=== PATIENT | female | born 1965 ===

== ENCOUNTER 2021-03-15 17:46 | Inpatient (IN) | payer BC ==
[~2021-03-15] VITALS: Ht 152.4 cm; Wt 71.0 kg
[2021-03-15] MEDS ORDERED: ACETAMINOPHEN 325 MG TAB PO ONE (18:30)
[2021-03-15 18:41] LABS: Urine Amorphous Crystal FEW /hpf (None Seen); Urine Bacteria NONE SEEN /hpf (None Seen); Urine Blood Negative /uL (Negative); Urine Specific Gravity 1.027 (1.001-1.035); Urine WBC 47 /hpf (0 - 5); Urine WBC Clumps PRESENT /hpf (None Seen)
[2021-03-15] MEDS ORDERED: cefTRIAXone 1GM/50ML D5W 50 ML IV ONE (19:30)
[2021-03-15 19:47] LABS: Albumin 3.7 g/dL (3.4-5.0); Anion Gap 7 (5-15); Blood Urea Nitrogen 18 mg/dL (7-18); Calcium 9.5 mg/dL (8.5-10.1); Carbon Dioxide 25 mmol/L (21-32); Chloride 109 mmol/L (98-107); Glucose 103 mg/dL (74-106); Potassium 4.1 mmol/L (3.5-5.1); Sodium 141 mmol/L (136-145)
[2021-03-15 19:56] LABS: Alanine Aminotransferase 523 U/L (13-56); Alkaline Phosphatase 218 U/L (45-117); Aspartate Aminotransferase 833 U/L (15-37); BUN/Creatinine Ratio 17.5; Bilirubin, Total 0.5 mg/dL (0.2-1.0); GFR African American 71 mL/min; GFR Non-African American 59 mL/min; Total Protein 7.8 g/dL (6.4-8.2)
[2021-03-15] MEDS ORDERED: metroNIDAZOLE 500MG/100ML 100 ML IV ONE (20:00)
[2021-03-15 20:22] LABS: Basophils # (auto) 0.1 10 ^3/uL (0-0.2); Basophils % (auto) 0.5 % (0.0-2.0); Eosinophils # (auto) 0.3 10 ^3/uL (0-0.8); Eosinophils % (auto) 2.2 % (0.0-7.0); Lymphocytes % (auto) 29.4 % (10.0-50.0); Mean Corpuscular Hemoglobin 29.9 pg (28.0-32.0); Mean Corpuscular Hgb Conc. 31.9 g/dL (32.0-36.0); Mean Corpuscular Volume 93.5 fL (80.0-100.0); Monocytes # (auto) 1.1 10 ^3/uL (0-1.3); Monocytes % (auto) 8.1 % (0.0-12.0); Neutrophils # (auto) 8.1 10 ^3/uL (1.6-8.6); Neutrophils % (auto) 59.8 % (37.0-80.0); Nucleated Red Blood Cells % 0.1 %; Red Blood Cells 5.02 10^6/uL (4.0-5.20); Red Cell Distribution Width 13.7 % (11.8-14.3); White Blood Cell 13.6 10^3/uL (4.4-10.8)
[2021-03-15] MEDS ORDERED: IOHEXOL 300 MG/ML 100ML BOTTLE IJ ONE (20:25)
[2021-03-15 21:21] LABS: Lipase 68455 U/L (73-393)
[2021-03-16] MEDS ORDERED: NITROGLYCERIN 0.4 MG SL TAB SL PRN (00:15)
[2021-03-16] MEDS ORDERED: HYDROcodone-ACET 5/325MG TAB PO PRN (00:15)
[2021-03-16] MEDS ORDERED: ACETAMINOPHEN 325 MG TAB PO PRN (00:15)
[2021-03-16] MEDS ORDERED: MORPHINE SULFATE INJECTION 2 MG/ML SYRG IV PRN (00:15)
[2021-03-16 00:45] LABS: Basophils # (auto) 0 10 ^3/uL (0-0.2); Basophils % (auto) 0.4 % (0.0-2.0); Eosinophils # (auto) 0.4 10 ^3/uL (0-0.8); Eosinophils % (auto) 4.4 % (0.0-7.0); Hematocrit 44.1 % (36.0-46.0); Hemoglobin 14.6 g/dL (12.2-16.2); Lymphocytes # (auto) 3.1 10 ^3/uL (0.4-5.4); Lymphocytes % (auto) 32.4 % (10.0-50.0); Mean Corpuscular Hemoglobin 30.4 pg (28.0-32.0); Mean Corpuscular Hgb Conc. 33.1 g/dL (32.0-36.0); Mean Corpuscular Volume 91.9 fL (80.0-100.0); Monocytes # (auto) 0.6 10 ^3/uL (0-1.3); Neutrophils # (auto) 5.5 10 ^3/uL (1.6-8.6); Neutrophils % (auto) 56.8 % (37.0-80.0); Nucleated Red Blood Cells % 0.1 %; Red Blood Cells 4.79 10^6/uL (4.0-5.20); Red Cell Distribution Width 13.4 % (11.8-14.3); White Blood Cell 9.6 10^3/uL (4.4-10.8)
[2021-03-16 01:01] LABS: Albumin 3.2 g/dL (3.4-5.0); Calcium 8.7 mg/dL (8.5-10.1)
[2021-03-16 01:03] LABS: Bilirubin, Total 0.2 mg/dL (0.2-1.0); Total Protein 7.1 g/dL (6.4-8.2)
[2021-03-16] MEDS: SOD CHL 0.45% 1,000 ML IV SCH ×2 (01:14→13:35)
[2021-03-16] MEDS: metroNIDAZOLE 500MG/100ML 100 ML IV SCH ×3 (06:00→21:35)
[2021-03-16] MEDS: cefTRIAXone 1GM/50ML D5W 50 ML IV SCH (09:19)
[2021-03-16] MEDS: FAMOTIDINE (10MG/ML) 2ML VL IV SCH ×2 (10:29→21:35)
[2021-03-16 11:11] VITALS: BP 132/68
[2021-03-16 12:00] VITALS: BP 132/68
[2021-03-16 17:00] VITALS: BP 114/75
[2021-03-16] MEDS: MORPHINE SULFATE 4 MG/ML SYR/VIAL IV PRN (20:47)
[2021-03-16 22:00] VITALS: BP 128/85
[2021-03-17] MEDS: SOD CHL 0.45% 1,000 ML IV SCH ×2 (02:45→16:15)
[2021-03-17 05:00] VITALS: BP 108/70
[2021-03-17] MEDS: metroNIDAZOLE 500MG/100ML 100 ML IV SCH ×3 (06:47→22:06)
[2021-03-17 07:58] LABS: Basophils # (auto) 0 10 ^3/uL (0-0.2); Basophils % (auto) 0.5 % (0.0-2.0); Eosinophils # (auto) 0.4 10 ^3/uL (0-0.8); Eosinophils % (auto) 5.1 % (0.0-7.0); Hematocrit 44.9 % (36.0-46.0); Hemoglobin 14.5 g/dL (12.2-16.2); Lymphocytes # (auto) 3.1 10 ^3/uL (0.4-5.4); Lymphocytes % (auto) 35.1 % (10.0-50.0); Mean Corpuscular Hemoglobin 30.3 pg (28.0-32.0); Mean Corpuscular Hgb Conc. 32.3 g/dL (32.0-36.0); Mean Corpuscular Volume 93.8 fL (80.0-100.0); Monocytes # (auto) 0.5 10 ^3/uL (0-1.3); Monocytes % (auto) 5.5 % (0.0-12.0); Neutrophils # (auto) 4.7 10 ^3/uL (1.6-8.6); Neutrophils % (auto) 53.8 % (37.0-80.0); Red Blood Cells 4.78 10^6/uL (4.0-5.20); Red Cell Distribution Width 13.4 % (11.8-14.3); White Blood Cell 8.7 10^3/uL (4.4-10.8)
[2021-03-17 08:19] LABS: Calcium 8.7 mg/dL (8.5-10.1); Potassium 3.8 mmol/L (3.5-5.1)
[2021-03-17 08:22] LABS: BUN/Creatinine Ratio 18.2; Bilirubin, Total 0.5 mg/dL (0.2-1.0); Total Protein 6.8 g/dL (6.4-8.2)
[2021-03-17 09:00] VITALS: BP 113/71
[2021-03-17] MEDS: ONDANSETRON HCL 4 MG/2 ML VIAL IV PRN (09:14)
[2021-03-17] MEDS: cefTRIAXone 1GM/50ML D5W 50 ML IV SCH (09:14)
[2021-03-17] MEDS: FAMOTIDINE (10MG/ML) 2ML VL IV SCH ×2 (09:20→22:06)
[2021-03-17 12:30] VITALS: BP 109/72
[2021-03-17 17:00] VITALS: BP 124/75
[2021-03-17 22:00] VITALS: BP 111/55
[2021-03-18 05:20] VITALS: BP 108/63
[2021-03-18] MEDS: SOD CHL 0.45% 1,000 ML IV SCH ×2 (05:35→09:54)
[2021-03-18] MEDS: metroNIDAZOLE 500MG/100ML 100 ML IV SCH ×3 (06:14→21:42)
[2021-03-18] MEDS: cefTRIAXone 1GM/50ML D5W 50 ML IV SCH (09:00)
[2021-03-18 09:13] VITALS: BP 120/63
[2021-03-18] MEDS: FAMOTIDINE (10MG/ML) 2ML VL IV SCH ×2 (09:54→21:42)
[2021-03-18 13:00] VITALS: BP 127/68
[2021-03-18 17:29] VITALS: BP 112/77
[2021-03-18 22:00] VITALS: BP 129/66
[2021-03-19] MEDS: SOD CHL 0.45% 1,000 ML IV SCH ×2 (00:04→21:35)
[2021-03-19 05:00] VITALS: BP 110/70
[2021-03-19] MEDS: metroNIDAZOLE 500MG/100ML 100 ML IV SCH ×3 (05:41→21:44)
[2021-03-19 06:06] LABS: Basophils # (auto) 0 10 ^3/uL (0-0.2); Basophils % (auto) 0.6 % (0.0-2.0); Eosinophils # (auto) 0.3 10 ^3/uL (0-0.8); Eosinophils % (auto) 4.6 % (0.0-7.0); Hematocrit 41.3 % (36.0-46.0); Hemoglobin 13.7 g/dL (12.2-16.2); Lymphocytes # (auto) 3.4 10 ^3/uL (0.4-5.4); Lymphocytes % (auto) 46.1 % (10.0-50.0); Mean Corpuscular Hemoglobin 30.3 pg (28.0-32.0); Mean Corpuscular Hgb Conc. 33.3 g/dL (32.0-36.0); Mean Corpuscular Volume 91.1 fL (80.0-100.0); Monocytes # (auto) 0.5 10 ^3/uL (0-1.3); Monocytes % (auto) 6.4 % (0.0-12.0); Neutrophils # (auto) 3.1 10 ^3/uL (1.6-8.6); Neutrophils % (auto) 42.3 % (37.0-80.0); Red Blood Cells 4.53 10^6/uL (4.0-5.20); Red Cell Distribution Width 12.8 % (11.8-14.3); White Blood Cell 7.4 10^3/uL (4.4-10.8)
[2021-03-19 06:23] LABS: Potassium 3.5 mmol/L (3.5-5.1)
[2021-03-19 06:24] LABS: INR 1.1 (0.9-1.15); Partial Thromboplastin Time 29.6 sec (23.6-33.0)
[2021-03-19 06:33] LABS: Albumin 2.9 g/dL (3.4-5.0); BUN/Creatinine Ratio 12.7; Bilirubin, Total 0.4 mg/dL (0.2-1.0); Calcium 8.6 mg/dL (8.5-10.1); Total Protein 6.5 g/dL (6.4-8.2)
[2021-03-19 09:00] VITALS: BP 132/74
[2021-03-19] MEDS: cefTRIAXone 1GM/50ML D5W 50 ML IV SCH (09:00)
[2021-03-19] MEDS: FAMOTIDINE (10MG/ML) 2ML VL IV SCH ×2 (09:44→21:44)
[2021-03-19 12:58] VITALS: BP 128/64
[2021-03-19 16:59] VITALS: BP 117/74
[2021-03-19 22:00] VITALS: BP 106/68
[2021-03-20 05:00] VITALS: BP 101/64
[2021-03-20 05:31] LABS: Basophils # (auto) 0.1 10 ^3/uL (0-0.2); Basophils % (auto) 0.6 % (0.0-2.0); Eosinophils # (auto) 0.4 10 ^3/uL (0-0.8); Eosinophils % (auto) 4.8 % (0.0-7.0); Hematocrit 42.1 % (36.0-46.0); Hemoglobin 14.4 g/dL (12.2-16.2); Lymphocytes # (auto) 3.6 10 ^3/uL (0.4-5.4); Lymphocytes % (auto) 44.3 % (10.0-50.0); Mean Corpuscular Hgb Conc. 34.3 g/dL (32.0-36.0); Mean Corpuscular Volume 90.5 fL (80.0-100.0); Monocytes # (auto) 0.6 10 ^3/uL (0-1.3); Monocytes % (auto) 6.8 % (0.0-12.0); Neutrophils # (auto) 3.6 10 ^3/uL (1.6-8.6); Neutrophils % (auto) 43.5 % (37.0-80.0); Nucleated Red Blood Cells % 0.1 %; Red Blood Cells 4.65 10^6/uL (4.0-5.20); Red Cell Distribution Width 12.9 % (11.8-14.3); White Blood Cell 8.2 10^3/uL (4.4-10.8)
[2021-03-20] MEDS: metroNIDAZOLE 500MG/100ML 100 ML IV SCH ×3 (05:47→23:02)
[2021-03-20 06:22] LABS: Calcium 9.5 mg/dL (8.5-10.1); Potassium 3.8 mmol/L (3.5-5.1)
[2021-03-20 06:26] LABS: Albumin 3.1 g/dL (3.4-5.0); BUN/Creatinine Ratio 12.7
[2021-03-20 06:31] LABS: Bilirubin, Total 0.4 mg/dL (0.2-1.0); Total Protein 6.8 g/dL (6.4-8.2)
[2021-03-20 09:00] VITALS: BP 126/70
[2021-03-20] MEDS: cefTRIAXone 1GM/50ML D5W 50 ML IV SCH (09:00)
[2021-03-20] MEDS ORDERED: fentaNYL CITRATE 100 MCG/2 ML VL ONE (09:11)
[2021-03-20] MEDS ORDERED: SODIUM CHLORIDE LOCK 10 ML ONE (09:11)
[2021-03-20] MEDS ORDERED: HYDROmorphone HCL 2 MG/ML VL ONE (09:11)
[2021-03-20] MEDS ORDERED: MIDAZOLAM HCL 2MG/2ML 2ml VIAL (1mg/ml) ONE (09:11)
[2021-03-20] MEDS ORDERED: PROPOFOL 10 MG/ML 20 ML IV ONE (09:11)
[2021-03-20] MEDS ORDERED: ONDANSETRON HCL 4 MG/2 ML VIAL ONE (09:11)
[2021-03-20] MEDS ORDERED: ROCURONIUM 10MG/ML 10ML VIAL IV ONE (09:11)
[2021-03-20] MEDS ORDERED: NEOSTIGMINE 1 MG/ML INJ (10mg/10ML VIAL) ONE (09:11)
[2021-03-20] MEDS ORDERED: GLYCOPYRROLATE 0.2 MG/ML 1ML VIAL ONE (09:11)
[2021-03-20] MEDS ORDERED: ceFAZolin 1GM/50ML 100 ML IV ONE (09:14)
[2021-03-20] MEDS ORDERED: METOCLOPRAMIDE HCL 5MG/ml INJ 2ml VIAL IV PRN (09:30)
[2021-03-20] MEDS ORDERED: MORPHINE SULFATE 4 MG/ML SYR/VIAL IV PRN (09:30)
[2021-03-20] MEDS ORDERED: BUPIVACAINE W/ EPINEPH 0.25% INJ 50ML MDV ONE (09:35)
[2021-03-20] MEDS: FAMOTIDINE (10MG/ML) 2ML VL IV SCH ×2 (10:00→23:02)
[2021-03-20] MEDS: SOD CHL 0.45% 1,000 ML IV SCH (10:55)
[2021-03-20] MEDS ORDERED: SUGAMMADEX 200mg/2ml Vial (100MG/ML) IV ONE (11:13)
[2021-03-20] MEDS: HYDROmorphone HCL 2 MG/ML VL IV PRN ×3 (11:40→12:03)
[2021-03-20 13:00] VITALS: BP 103/59
[2021-03-20] MEDS: MORPHINE SULFATE 4 MG/ML SYR/VIAL IV PRN ×2 (13:51→18:13)
[2021-03-20 17:00] VITALS: BP 106/62
[2021-03-20] MEDS: ONDANSETRON HCL 4 MG/2 ML VIAL IV PRN (18:13)
[2021-03-20 22:00] VITALS: BP 113/63
[2021-03-21] MEDS: SOD CHL 0.45% 1,000 ML IV SCH ×2 (01:14→13:35)
[2021-03-21 05:00] VITALS: BP 111/70
[2021-03-21] MEDS: metroNIDAZOLE 500MG/100ML 100 ML IV SCH ×2 (05:57→14:00)
[2021-03-21 06:18] LABS: Basophils # (auto) 0.1 10 ^3/uL (0-0.2); Basophils % (auto) 0.7 % (0.0-2.0); Eosinophils # (auto) 0.1 10 ^3/uL (0-0.8); Eosinophils % (auto) 0.8 % (0.0-7.0); Hematocrit 40.9 % (36.0-46.0); Hemoglobin 14.2 g/dL (12.2-16.2); Lymphocytes # (auto) 2.5 10 ^3/uL (0.4-5.4); Lymphocytes % (auto) 25.8 % (10.0-50.0); Mean Corpuscular Hemoglobin 31.6 pg (28.0-32.0); Mean Corpuscular Hgb Conc. 34.8 g/dL (32.0-36.0); Mean Corpuscular Volume 90.9 fL (80.0-100.0); Monocytes # (auto) 0.7 10 ^3/uL (0-1.3); Monocytes % (auto) 7.4 % (0.0-12.0); Neutrophils # (auto) 6.4 10 ^3/uL (1.6-8.6); Neutrophils % (auto) 65.3 % (37.0-80.0); Red Blood Cells 4.49 10^6/uL (4.0-5.20); White Blood Cell 9.8 10^3/uL (4.4-10.8)
[2021-03-21 06:35] LABS: Calcium 8.6 mg/dL (8.5-10.1); Potassium 3.4 mmol/L (3.5-5.1)
[2021-03-21 06:41] LABS: Albumin 3.1 g/dL (3.4-5.0); BUN/Creatinine Ratio 10.7; Bilirubin, Total 0.5 mg/dL (0.2-1.0); Total Protein 6.4 g/dL (6.4-8.2)
[2021-03-21 09:08] VITALS: BP 118/59
[2021-03-21] MEDS: cefTRIAXone 1GM/50ML D5W 50 ML IV SCH (09:45)
[2021-03-21] MEDS: FAMOTIDINE (10MG/ML) 2ML VL IV SCH (10:18)
[2021-03-21 12:34] VITALS: BP 121/77
[2021-03-21 13:10] VITALS: BP 121/77
== END 2021-03-21 17:00 | disposition home or self-care (01) | DRG 417 ==
LOC: ER 17:46 → OVERFLOW 03-16 00:12 → WEST WING 03-16 10:45
PROVIDERS: ADMIT Nurse Practitioner Family; ATTEND Internal Medicine
PROC: 0FT44ZZ Resection of Gallbladder, Percutaneous Endoscopic Approach (ICD-10-PCS; principal; 2021-03-20 09:52)
DX: K80.00 Calculus of gallbladder with acute cholecystitis without obstruction (principal); K85.10 Biliary acute pancreatitis without necrosis or infection; N39.0 Urinary tract infection, site not specified; Z20.822 Contact with and (suspected) exposure to COVID-19; K57.90 Diverticulosis of intestine, part unspecified, without perforation or abscess without bleeding; E66.9 Obesity, unspecified; Z88.8 Allergy status to other drugs, medicaments and biological substances; Z80.1 Family history of malignant neoplasm of trachea, bronchus and lung; Z68.32 Body mass index [BMI] 32.0-32.9, adult
CPT/HCPCS: 36415; 71045; 74177; 74181; 76705; 80053; 81001; 82150; 83690; 84484; 85025; 85610; 85730; 87426; 96365; 96368; 96375; G0378; J0690; J0696; J2250; J2405; J2704; J3490